=== PATIENT | female | born 1955 | race Caucasian/White ===

== ENCOUNTER 2021-05-15 09:45 | Emergency (ER) | payer MEDICARE, BC ==
[~2021-05-15] VITALS: Ht 160 cm; Wt 81.6 kg
--- NOTE | 2021-05-15 09:58 | NUR ---
TO ER BED 3 AWAITING MD QUINTANILLA,MONITOR,EKG
[2021-05-15] MEDS ORDERED: MECLIZINE HCL 25 MG TABLET ONE (10:17)
[2021-05-15] MEDS ORDERED: ACETAMINOPHEN ES 500 MG TABLET ONE (10:17)
--- NOTE | 2021-05-15 10:20 | NUR ---
EMT AT BEDSIDE FOR EKG.
--- NOTE | 2021-05-15 10:20 | NUR ---
PHLEB AT BEDSIDE FOR BLOOD DRAWN
[2021-05-15] MEDS ORDERED: hydrALAZINE HCL 10 MG TABLET PO ONE (10:30)
[2021-05-15] MEDS ORDERED: MECLIZINE HCL 12.5 MG TABLET PO ONE (10:30)
[2021-05-15] MEDS ORDERED: ACETAMINOPHEN ES 500 MG TABLET PO ONE (10:30)
--- NOTE | 2021-05-15 10:33 | NUR ---
PATIENT AMBULATORY WITH STEADY GAIT. NO DISTRESS NOTED.
[2021-05-15 10:34] LABS: BASOPHILS # (AUTO) 0.1 K/uL (0.0-0.2); BASOPHILS % (AUTO) 0.6 % (0.0-2.0); EOSINOPHILS % (AUTO) 0.7 % (0.0-6.0); HEMATOCRIT 42 % (33-45); HEMOGLOBIN 14.1 g/dL (11.5-14.8); LYMPHOCYTES % (AUTO) 22.2 % (20.0-44.0); MEAN CORPUSCULAR HGB CONC 33 g/dl (31.0-36.0); MEAN CORPUSCULAR VOLUME 82 fL (82-100); MONOCYTES # (AUTO) 0.5 K/uL (0.1-1.30); MONOCYTES % (AUTO) 5.7 % (2.0-12.0); NEUTROPHILS # (AUTO) 6.4 K/uL (1.8-8.9); NEUTROPHILS % (AUTO) 70.8 % (43.0-81.0); PLATELET COUNT (AUTO) 327 K/uL (150-450); WHITE BLOOD COUNT (AUTO) 9.1 K/uL (4.3-11.0)
[2021-05-15 10:43] LABS: CALCIUM, SERUM 9.1 mg/dL (8.5-10.1); CARBON DIOXIDE 28 mmol/L (21-32); CHLORIDE 103 mmol/L (98-107); CREATININE 0.7 mg/dL (0.6-1.3); GLUCOSE 121 mg/dL (74-106); SODIUM SERUM 138 mmol/L (136-145); UREA NITROGEN, BLOOD 14 mg/dL (7-18)
[2021-05-15 10:49] LABS: ALANINE AMINOTRANSFERASE 38 U/L (12-78); ALBUMIN 3.6 g/dL (3.4-5.0); ALKALINE PHOSPHATASE 98 U/L (46-116); ASPARTATE AMINOTRANSFERASE 19 U/L (15-37); BILIRUBIN,DIRECT 0.1 mg/dL (0.0-0.2); BILIRUBIN,TOTAL 0.4 mg/dL (0.2-1.0); TOTAL PROTEIN, SERUM 7.4 g/dL (6.4-8.2)
--- NOTE | 2021-05-15 11:01 | NUR ---
pt sts she feels better
--- NOTE | 2021-05-15 11:06 | NUR ---
TAKEN TO CT.
--- NOTE | 2021-05-15 12:00 | NUR ---
PATIENT RESTING, NO DISTRESS NOTED. BP IMPROVED.
[2021-05-15 12:11] VITALS: BP 154/72
--- NOTE | 2021-05-15 12:11 | NUR ---
Patient gave instructions to take medications as prescribed and to call PMD for an appointment re: bp meds. Patient discharged to home in stable condition. Written and verbal after care instructions given. Patient verbalizes understanding of instruction.
== END 2021-05-15 12:11 | disposition home or self-care (01) ==
LOC: ER 09:49
DX: I10 Essential (primary) hypertension (principal); R42 Dizziness and giddiness; R51.9 Headache, unspecified
CPT/HCPCS: 36415; 70450; 80048; 80076; 84484; 85025; 93005; 99285; J8597

== ENCOUNTER 2022-08-05 11:09 | Emergency (ER) | payer MEDICARE, OTHER ==
[~2022-08-05] VITALS: Ht 160 cm; Wt 81.6 kg
--- NOTE | 2022-08-05 11:20 | NUR ---
urine collected and sent to lab.
[2022-08-05 12:05] LABS: BASOPHILS # (AUTO) 0.1 K/uL (0.0-0.2); BASOPHILS % (AUTO) 0.5 % (0.0-2.0); EOSINOPHILS % (AUTO) 0.4 % (0.0-6.0); HEMATOCRIT 42 % (33-45); HEMOGLOBIN 13.5 g/dL (11.5-14.8); LYMPHOCYTES # (AUTO) 2.2 K/uL (0.8-4.8); LYMPHOCYTES % (AUTO) 16.6 % (20.0-44.0); MEAN CORPUSCULAR HGB CONC 32 g/dl (31.0-36.0); MEAN CORPUSCULAR VOLUME 83 fL (82-100); MONOCYTES # (AUTO) 0.8 K/uL (0.1-1.30); NEUTROPHILS # (AUTO) 10.3 K/uL (1.8-8.9); NEUTROPHILS % (AUTO) 76.5 % (43.0-81.0); PLATELET COUNT (AUTO) 297 K/uL (150-450); RED BLOOD CELL COUNT(AUTO) 5.05 MIL/uL (4.0-5.2); WHITE BLOOD COUNT (AUTO) 13.4 K/uL (4.3-11.0)
[2022-08-05 12:12] LABS: CALCIUM, SERUM 8.9 mg/dL (8.5-10.1); CREATININE 0.6 mg/dL (0.6-1.3); POTASSIUM 4.3 mmol/L (3.5-5.1)
[2022-08-05 12:17] LABS: BILIRUBIN,URINE NEGATIVE (NEGATIVE); COLOR,URINE YELLOW (YELLOW); LEUKOCYTE ESTERASE ,URINE MODERATE (NEGATIVE); NITRITE, URINE POSITIVE (NEGATIVE); PROTEIN,URINE 100 mg/dl (NEGATIVE); UGLUCOSE NEGATIVE (NEGATIVE); UROBILINOGEN,URINE 0.2 EU/dL (0.2)
[2022-08-05 12:18] LABS: ALBUMIN 3.4 g/dL (3.4-5.0); BILIRUBIN,DIRECT 0.1 mg/dL (0.0-0.2); BILIRUBIN,TOTAL 0.3 mg/dL (0.2-1.0); TOTAL PROTEIN, SERUM 7.2 g/dL (6.4-8.2)
[2022-08-05 12:46] LABS: BACTERIA,URINE 1+ /HPF (None Seen); WBC,URINE 81-100 /HPF (0-3)
[2022-08-05] MEDS ORDERED: CEFTRIAXONE 1 G in IV D5W 50 ML IV ONE (13:00)
[2022-08-05] MEDS ORDERED: LIDOCAINE /MPF 1% VIAL 5 ML VIAL ONE (13:35)
[2022-08-05] MEDS ORDERED: IBUPROFEN 600 MG TABLET ONE (13:35)
[2022-08-05] MEDS ORDERED: CEFTRIAXONE 1 G VIAL ONE (13:35)
--- NOTE | 2022-08-05 13:44 | NUR ---
provided w/ lunch tray.
[2022-08-05] MEDS ORDERED: IBUPROFEN 600 MG TABLET PO ONE (14:00)
[2022-08-05] MEDS ORDERED: IBUP-1955 PO (14:11)
[2022-08-05] MEDS ORDERED: CEPH500C2 PO (14:11)
--- NOTE | 2022-08-05 14:24 | NUR ---
Patient discharged to home in stable condition. Written and verbal after care instructions given. Patient verbalizes understanding of instruction.
[2022-08-05 14:26] VITALS: BP 144/77
== END 2022-08-05 14:26 | disposition home or self-care (01) ==
LOC: ER 11:14
DX: N12 Tubulo-interstitial nephritis, not specified as acute or chronic (principal); G89.29 Other chronic pain; M54.50 Low back pain, unspecified; M89.50 Osteolysis, unspecified site; I10 Essential (primary) hypertension
CPT/HCPCS: 99284; 74176; 96372; 85025; 80048; 87077; 87086; 83690; 80076; 87186; 81001; 36415; J0696; J7060; J3490